=== PATIENT | male | born 1995 | race Two or more races ===

== ENCOUNTER 2019-09-11 05:50 | Emergency (ER) | payer OTHER ==
[~2019-09-11] VITALS: Ht 185.4 cm; Wt 92.0 kg
[2019-09-11 05:52] VITALS: BP 114/73
--- NOTE | 2019-09-11 06:45 | NUR ---
REPORT TO MEGAN GUERIN AND JORGE GUERIN
--- NOTE | 2019-09-11 06:48 | NUR ---
REPORT RECEIVED FROM LATRICE GUERIN.
--- NOTE | 2019-09-11 07:40 | NUR ---
PATIENT RESTING ON GURNEY WITH LAW ENFORCEMENT STAFF AT BEDSIDE. DENIES FURTHER NEEDS AT THIS TIME. AWAITING D/C PAPERWORK.
== END 2019-09-11 07:50 | disposition home or self-care (01) ==
LOC: ED 07:06
DX: Z77.21 Contact with and (suspected) exposure to potentially hazardous body fluids (principal); E11.9 Type 2 diabetes mellitus without complications; Z87.891 Personal history of nicotine dependence; X58.XXXA Exposure to other specified factors, initial encounter; Y93.89 Activity, other specified; Y92.89 Other specified places as the place of occurrence of the external cause; Y99.8 Other external cause status
CPT/HCPCS: 36415; 86705; 86706; 86803; 87340; 87806; 99283; G0475